=== PATIENT | male | born 1995 | race Caucasian/White ===

== ENCOUNTER 2018-10-14 17:51 | Emergency (ER) | payer OTHER, MEDICAID ==
[~2018-10-14] VITALS: Ht 185.4 cm; Wt 92.5 kg
[2018-10-14 17:56] VITALS: BP 126/62
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
--- NOTE | 2018-10-14 18:20 | NUR ---
PT AMBULATED TO RESTROOM, URINE SAMPLE PROVIDED AND SENT TO LAB.
[2018-10-14] MEDS ORDERED: IBUPROFEN 400 MG TAB PO ONE (18:45)
[2018-10-14] MEDS ORDERED: LORazepam 1 MG TAB PO ONE (18:45)
--- NOTE | 2018-10-14 18:50 | NUR ---
CALLED HOUSE [facility]P FOR BUS PASS
--- NOTE | 2018-10-14 19:29 | NUR ---
REPORT GIVEN TO JIMENA CABRAL
--- NOTE | 2018-10-14 20:00 | NUR ---
PT SPEAKING IN CLEAR AND COMPLETE SENTENCES, 0/10 PAIN AT THIS TIME. PT LAYING IN BED POSITIONED FOR COMFORT.
--- NOTE | 2018-10-14 21:05 | NUR ---
Patient discharged with v/s stable. Patient provided with rehabilitation resource packet and bus pass. Patient states he does not want to hurt himself, and states "I know how to play the system". Patient speaking in clear and complete sentences. Written and verbal after care instructions given and explained. Patient alert, oriented and verbalized understanding of instructions. Ambulatory with steady gait. All questions addressed prior to discharge. ID band removed. Patient advised to follow up with PMD. Rx of Naprosyn given. Patient educated on indication of medication including possible reaction and side effects. Opportunity to ask questions provided and answered.
[2018-10-14 21:11] VITALS: BP 103/79
== END 2018-10-14 21:05 | disposition home or self-care (01) ==
LOC: MED 17:51
DX: S60.221A Contusion of right hand, initial encounter (principal); F15.10 Other stimulant abuse, uncomplicated; F12.90 Cannabis use, unspecified, uncomplicated; F31.9 Bipolar disorder, unspecified; Z88.0 Allergy status to penicillin; W22.01XA Walked into wall, initial encounter; Y93.89 Activity, other specified; Y92.89 Other specified places as the place of occurrence of the external cause; Y99.8 Other external cause status
CPT/HCPCS: 73130; 99283